=== PATIENT | male | born 2000 | race Two or more races ===

== ENCOUNTER 2024-01-18 11:48 | Emergency (ER) | payer SELFPAY ==
[2024-01-18 12:30] LABS: APPEARANCE,URINE CLEAR (CLEAR); BILIRUBIN,URINE NEGATIVE (NEGATIVE); COLOR,URINE YELLOW (YELLOW); GLUCOSE,URINE NEGATIVE (NEGATIVE); KETONES,URINE NEGATIVE (NEGATIVE); LEUKOCYTE ESTERASE,URINE NEGATIVE (NEGATIVE); NITRITE,URINE NEGATIVE (NEGATIVE); OCCULT BLOOD,URINE NEGATIVE (NEGATIVE); PROTEIN,URINE NEGATIVE (NEGATIVE); UROBILINOGEN,URINE 0.2 EU/dL (0.2-1.0)
[2024-01-18] MEDS: Iopamidol 755 Mg/ML 100 ML Bottle IVPUSH ONE (12:37)
[2024-01-18 12:41] LABS: BASOPHILS ABSOLUTE AUTO 0.04 10^3/uL (0.00-0.50); BASOPHILS PERCENT AUTO 0.6 % (0-1); EOSINOPHILS ABSOLUTE AUTO 1.26 10^3/uL (0.00-1.50); EOSINOPHILS PERCENT AUTO 17.8 % (0-6); HEMATOCRIT 45.9 % (42.0-52.0); HEMOGLOBIN 15.6 g/dL (14.0-18.0); IMMATURE GRAN ABSOLUTE AUTO 0.01 10^3/uL (0.00-0.49); IMMATURE GRAN PERCENT AUTO 0.1 % (0.0-4.9); LYMPHOCYTES ABSOLUTE AUTO 2.04 10^3/uL (0.60-5.00); LYMPHOCYTES PERCENT AUTO 28.8 % (24-44); MEAN CORPUSCULAR HEMOGLOBIN 32.2 pg (27.0-32.0); MEAN CORPUSCULAR VOLUME 94.8 fL (83.0-97.0); MONOCYTES ABSOLUTE AUTO 0.41 10^3/uL (0.00-1.50); MONOCYTES PERCENT AUTO 5.8 % (0-10); NEUTROPHILS ABSOLUTE AUTO 3.33 x10^3/uL (1.80-8.00); NEUTROPHILS PERCENT AUTO 46.9 % (41-71); PLATELET COUNT,PLT 179 10^3/uL (150-400); RED BLOOD CELL COUNT 4.84 x10^6/uL (4.50-6.00); WHITE BLOOD CELL COUNT,WBC 7.1 10^3/uL (4.0-11.0)
[2024-01-18 12:54] LABS: ALANINE AMINOTRANSFERASE,ALT 20 U/L (12-78); ALBUMIN 4.1 g/dL (3.4-5.0); ALKALINE PHOSPHATASE 66 U/L (46-116); ASPARTATE AMNIOTRANSFERASE,AST 15 U/L (15-37); BILIRUBIN TOTAL 0.5 mg/dL (0.0-1.0); BLOOD UREA NITROGEN,BUN 13 mg/dL (7-18); C-REACTIVE PROTEIN < 0.50 mg/dL (<=0.50); CALCIUM 8.7 mg/dL (8.4-10.1); CARBON DIOXIDE,CO2 28 mmol/L (21-32); CHLORIDE,CL 96 mEq/L (98-106); CREATININE 0.9 mg/dL (0.7-1.3); EST CRCL DRUG DOSING (CG) 124.56 mL/min; ESTIMATED GFR 124 mL/min (>=60); GLUCOSE RANDOM 85 mg/dL (75-99); POTASSIUM,K 4.5 mEq/L (3.5-5.0); PROTEIN TOTAL,TP 7.3 g/dL (6.4-8.2); SODIUM,NA 132 mEq/L (136-145)
== END 2024-01-18 14:20 | disposition home or self-care (01) ==
LOC: CC.ED 11:48
DX: R10.13 Epigastric pain (principal)
CPT/HCPCS: 36415; 74177; 80053; 81003; 85025; 86140; 99284; Q9967